=== PATIENT | female | born 1965 | race Caucasian/White ===

== ENCOUNTER → 2020-02-04 14:20 | Outpatient (CLI) | payer OTHER, SELFPAY ==
--- NOTE | ~2020-02-04 | US_ITS ---
EXAMINATION: US thyroid EXAM DATE: 02/04/2020 14:40 INDICATION: There is enlargement. Abnormal thyroid levels. History of Graves' disease. TECHNIQUE: Multiple grayscale and Doppler images of the thyroid were obtained (by a technologist who performed the scan) and subsequently reviewed. Individual nodules and recommendations may be reporte d in accordance with TI-RADS system as designated by the 2017 ACR White Paper TI-RADS committee. The re is no prior study for comparison. FINDINGS: The right thyroid lobe measures 4.1 x 1.2 x 1.6 cm, left measuring 3.7 x 1.1 x 1.3 cm. There is relat ively homogeneous thyroid echogenicity with expected amount of vascularity. No focal nodules identifi ed. IMPRESSION: Unremarkable thyroid ultrasound exam. Reviewed, dictated and finalized at location A.
== END ==
PROVIDERS: Visit Provider Internal Medicine
DX: E03.9 Hypothyroidism, unspecified (principal)
CPT/HCPCS: 76536

== ENCOUNTER 2020-02-08 14:42 | Outpatient (CLI) | payer OTHER, SELFPAY ==
--- NOTE | 2020-02-08 | ECHO_ITS ---
Patient Info Name: Nirali Donnelly Age: 54 years : 1965 Gender: Female Ht: 66 in Wt: 215 lbs BSA: 2.17 m2 HR: 71 bpm BP: 131 / 91 mmHg Heart Rhythm: Sinus Rhythm Technical Quality: Good Exam Date: 02/08/2020 3:09 PM Exam Location: [facility] Patient Status: Outpatient Admit Date: 02/08/2020 Staff Ordering Physician: Héctor Cruz MD Web Publisher: Drew Acuna RDCS Attending Provider: Héctor Cruz MD Referring Physician: Anthony RAPHAEL; Exam Type: CA echo doppler color flow Study Info Indications R01.1 - Cardiac murmur, unspecified Complete two-dimensional, color flow and Doppler transthoracic echocardiogram is performed. Strain analysis performed. History/Risk Factors Murmur. Summary 1. Left ventricular chamber dimension is normal. 2. Left ventricular systolic function is normal, estimated at 60-65%. 3. There is no increased left ventricular wall thickness. 4. The left ventricular diastolic function is normal. 5. E/e' 5 is not elevated. 6. Global longitudinal strain is normal at -20.1%. 7. There is trace tricuspid valve regurgitation. 8. No pulmonary hypertension, estimated pulmonary arterial systolic pressure is 29 mmHg. Left Ventricle E/e' 5 is not elevated. Global longitudinal strain is normal at -20.1%. Left ventricular chamber dimension is normal. Left ventricular systolic function is normal, estimated at 60-65%. There is no increased left ventricular wall thickness. The left ventricular diastolic function is normal. Right Ventricle Right ventricular chamber dimension is normal. Right ventricular systolic function is normal. Left Atria Left atrial chamber dimension is normal. Right Atria Right atrial chamber dimension is normal. Aortic Valve The aortic valve is trileaflet. There is no aortic valve stenosis. There is no aortic valve regurgitation. Pulmonic Valve There is no pulmonic regurgitation. Mitral Valve There is no mitral valve stenosis. There is no mitral valve regurgitation. Tricuspid Valve There is trace tricuspid valve regurgitation. No pulmonary hypertension, estimated pulmonary arterial systolic pressure is 29 mmHg. Pericardium/Pleural There is no pericardial effusion. Inferior Vena Cava Normal inferior vena cava with >50% collapse upon inspiration consistent with normal right atrial pressure, 5 mmHg. Aorta The aortic root size at the sinus of Valsalva is normal. Left Ventricular Outflow Tract Name Value Normal LVOT 2D LVOT Diameter 1.8 cm LVOT Doppler LVOT Peak Gradient 6 mmHg LVOT Mean Gradient 3 mmHg LVOT VTI 26 cm LVOT VTI/AV VTI Ratio 1.0 LVOT Stroke Volume 70 ml LVOT CO 4.9 l/min LVOT CI 2.3 l/min/m2 Mitral Valve Name Value Normal
== END 2020-02-08 14:43 | disposition home or self-care (01) ==
PROVIDERS: PCP Internal Medicine; Visit Provider Internal Medicine
DX: R01.1 Cardiac murmur, unspecified (principal)
CPT/HCPCS: 93306

== ENCOUNTER 2020-04-29 10:03 | Outpatient (CLI) | payer OTHER, SELFPAY ==
--- NOTE | ~2020-04-29 | XR_ITS ---
EXAMINATION: XR TMJ BI DATE: 04/29/2020 10:27 INDICATION: Arthralgia of temporomandibular joint, unspecified side. TECHNIQUE: Open and closed mouth views of the bilateral temporomandibular joints for a total of 4 vie ws were obtained. COMPARISON: None. FINDINGS: Right mandibular condyle demonstrates a tiny osteophyte. Left mandibular condyle is normal in morphology. There is normal anterior translation of the mandibular condyles in the open-mouth posi tion. IMPRESSION: 1. Mild osteoarthritis of right temporomandibular joint. Reviewed, dictated and finalized at location A.
== END 2020-04-29 10:04 | disposition home or self-care (01) ==
LOC: ANHIMG 10:10
PROVIDERS: PCP Internal Medicine; Visit Provider Internal Medicine
DX: M26.641 Arthritis of right temporomandibular joint (principal)
CPT/HCPCS: 70330

== ENCOUNTER 2020-05-17 11:28 | Outpatient (NON) | payer OTHER, SELFPAY ==
[2020-05-21 14:21] LABS: SARS-CoV-2 RNA PCR Negative
== END 2020-05-17 11:29 ==
LOC: ANHCOVIDDT 11:29
PROVIDERS: PCP Internal Medicine; Visit Provider Internal Medicine
DX: Z20.828 Contact with and (suspected) exposure to other viral communicable diseases (principal)
CPT/HCPCS: 87635; C9803; U0003

== ENCOUNTER 2020-08-21 13:26 | Outpatient (CLI) | payer OTHER, SELFPAY ==
--- NOTE | ~2020-08-21 | XR_ITS ---
XR chest 2V DATE: 08/21/2020 13:53 INDICATION: Cough, shortness of breath. TECHNIQUE: PA and lateral views COMPARISON: 09/18/2015 PA and lateral chest FINDINGS: Normal heart size. No hilar or mediastinal enlargement. No pulmonary infiltrate or consolid ation, pleural effusion or pulmonary vascular congestion or pneumothorax. IMPRESSION: No active cardiopulmonary disease Reviewed, dictated and finalized at location B. ER MASON
[2020-08-21 13:46] LABS: Hematocrit 40.6 % (37.0-47.0); Hemoglobin 13.4 g/dL (12.0-15.0); Mean Corpuscular Hemoglobin 29.6 pg (26-34); Mean Corpuscular Volume 89.8 fl (80-100); Mean Platelet Volume 10.1 fl (7.4-10.4); Platelet Count Result 169 k/mm3 (150-375); Red Blood Count 4.52 M/mm3 (4.2-5.4); Red Cell Distribution Width 12.4 % (11.5-14.5); White Blood Count 4.5 K/mm3 (4.5-10.0)
[2020-08-21 13:59] LABS: Anion Gap 7 mmol/L (8-16); Blood Urea Nitrogen 6 mg/dL (7-17); Calcium 8.8 mg/dL (8.4-10.2); Carbon Dioxide 33 mmol/L (22-30); Chloride 98 mmol/L (98-107); Estimated Glomerular Filt Rate > 60; Glucose 91 mg/dL (65-105); Sodium 138 mmol/L (137-145)
[2020-08-21 14:11] LABS: Atypical Lymphocytes Present; Eosinophils Absolute Manual 0.09 K/mm3 (0.02-0.5); Eosinophils Percent Manual 2 % (0-4); Monocytes Absolute Manual 0.04 K/mm3 (0.1-0.90); Monocytes Percent Manual 1 % (3-9); Neutrophils Percent Manual 57 % (46-73); Platelet Estimate Adequate (Adequate); Smudge Cells PRESENT; Total Cells Counted 100
[2020-08-21 14:12] LABS: Crenated RBC 1+ (NORMAL); Ovalocytes 1+ (NORMAL)
[2020-08-21 14:13] LABS: Tear Drop Cells 1+ (NORMAL)
[2020-08-21 14:24] LABS: Free T4 Free Thyroxine 0.98 ng/mL (0.78-2.19)
[2020-08-24 05:51] LABS: Triiodothyronine T3 Free 2.9 pg/mL (2.3-4.2)
== END 2020-08-21 13:27 | disposition home or self-care (01) ==
LOC: ANHLAB 13:31
PROVIDERS: PCP Internal Medicine; Visit Provider Internal Medicine
DX: U07.1 COVID-19 (principal); R06.02 Shortness of breath; R05 Cough; Z86.39 Personal history of other endocrine, nutritional and metabolic disease
CPT/HCPCS: 36415; 71046; 80048; 84439; 84443; 84481; 85025

== ENCOUNTER 2020-09-19 10:12 | Outpatient (CLI) | payer OTHER, SELFPAY ==
--- NOTE | ~2020-09-19 | US_ITS ---
EXAMINATION: US abdomen limited EXAM DATE: 09/19/2020 10:48 INDICATION: R14.0 - Abdominal distension (gaseous) post prandial abd pain. TECHNIQUE: Multiple grayscale and Doppler images of the abdomen right upper quadrant were obtained (b y a technologist who performed the scan) and subsequently reviewed. Comparison is made to prior exami nation from 05/31/2017. FINDINGS: The pancreatic head and body are normal in appearance. The pancreatic tail is not visualized. The l iver has normal echogenicity and contour. There are no focal liver lesions identified. There is no evidence of intrahepatic biliary duct dilation. Portal venous flow was seen in the hepatopedal, nor mal direction and has normal Doppler waveform. No right-sided hydronephrosis. Common bile duct measures 2 mm, which is normal. The gallbladder wall is normal in thickness, with ex pected amount of distention. No sonographic evidence of pericholecystic fluid. Multiple small galls tones. Technologist performing exam reports patient did not demonstrate sonographic Merritt's sign. Please note that this sign is less reliable in patients who have received pain medication. IMPRESSION: Cholelithiasis. Reviewed, dictated and finalized at location A. IMPRESSION: Cholelithiasis.
--- NOTE | ~2020-09-19 | XR_ITS ---
EXAMINATION: XR UGIAC w small bowel EXAM DATE: 09/19/2020 11:48 INDICATION: R14.0 - Abdominal distension (gaseous) . TECHNIQUE: Assistant Offset Press Operator radiograph was acquired. Standard single and double contrast barium upper GI examina tion was performed followed by small bowel series. Spot images of the terminal ileum were acquired. The DAP for this procedure was 50 Gycm2. There is no prior study for comparison. FINDINGS: There is no esophageal stricture, diverticulum or mass identified. Gastroesophageal juncti on is normal in appearance. Reflux was not demonstrated during this examination. The stomach has a normal appearance without evidence of mass lesion, ulceration or filling defect. T here is normal rugal fold pattern. The duodenum and duodenal sweep are normal in appearance. Ileal and jejunal fold patterns are normal. There is no small bowel wall thickening or mass effect d isplacing small bowel. There are no intraluminal filling defects identified. There is no small aki l dilation. Terminal ileum is normal in appearance. Contrast reached the colon 15-30 minutes, denice l. IMPRESSION: Normal exam. Reviewed, dictated and finalized at location A. IMPRESSION: Normal exam.
== END 2020-09-19 10:13 | disposition home or self-care (01) ==
PROVIDERS: PCP Internal Medicine; Visit Provider Internal Medicine
DX: R14.0 Abdominal distension (gaseous) (principal); K80.20 Calculus of gallbladder without cholecystitis without obstruction
CPT/HCPCS: 74246; 74248; 76705

== ENCOUNTER 2020-09-26 11:37 | Outpatient (CLI) | payer OTHER, SELFPAY ==
--- NOTE | ~2020-09-26 | NM_ITS ---
EXAMINATION: NM hepatobiliary w pharm DATE: 09/26/2020 13:39 INDICATION: Cholelithiasis COMPARISON: HIDA scan dated 06/06/2017 TECHNIQUE: 4.7 mCi Tc-99m mebrofenin (Choletec) was administered intravenously. Scintigraphic images of the abdomen were obtained for one hour. 1.7 mcg sincalide (Kinevac) was administered by slow intr avenous infusion, and imaging was continued for 30 minutes. Gallbladder ejection fraction was calcula ren by the technologist. FINDINGS: There is normal clearance of radiotracer from the blood pool. There is homogeneous tracer uptake by t he liver. Activity progresses to the gallbladder and bowel. The gallbladder ejection fraction (GBEF) is 0% (normal 10-90%, but most patient with gallbladder dysfunction have GBEF < 35% which does overl ap with the normal range). IMPRESSION: 1. No evident ejection of activity from the gallbladder in response to sincalide administration cons istent with gallbladder dysfunction or chronic cholecystitis in the appropriate clinical setting. Reviewed, dictated and finalized at location A. IMPRESSION: 1. No evident ejection of activity from the gallbladder in response to sincali de administration consistent with gallbladder dysfunction or chronic cholecysti tis in the appropriate clinical setting.
== END 2020-09-26 11:38 | disposition home or self-care (01) ==
PROVIDERS: PCP Internal Medicine; Visit Provider Internal Medicine
DX: K80.20 Calculus of gallbladder without cholecystitis without obstruction (principal)
CPT/HCPCS: 78227; A9537; J2805

== ENCOUNTER 2021-01-14 10:37 | Outpatient (CLI) | payer OTHER, SELFPAY ==
--- NOTE | 2021-01-14 10:30 | ECG_ITS ---
Measurements Intervals [place] Rate: 53 P: 38 CA: 174 QRS: 50 QRSD: 89 T: 27 QT: 434 QTc: 410 Interpretive Statements SINUS BRADYCARDIA BASELINE ARTIFACT- II, III, AVF BORDERLINE ECG Electronically Signed On 01-14-2021 10:59:36 CDT by Ashish Butler D.O.
[2021-01-14 12:29] LABS: Alanine Aminotransferase 32 U/L (4-35); Albumin Level 4.7 g/dL (3.5-5.1); Alkaline Phosphatase 59 U/L (38-126); Amylase 70 U/L (30-110); Anion Gap 8 mmol/L (8-16); Aspartate Amino Transferase 35 U/L (14-36); Blood Urea Nitrogen 9 mg/dL (7-17); Calcium 9.5 mg/dL (8.4-10.2); Carbon Dioxide 31 mmol/L (22-30); Chloride 99 mmol/L (98-107); Estimated Glomerular Filt Rate > 60; Glucose 97 mg/dL (65-105); Lipase 41 U/L (23-300); Potassium 3.6 mmol/L (3.4-5.0); Sodium 138 mmol/L (137-145)
== END 2021-01-14 10:38 | disposition home or self-care (01) ==
LOC: ANHSURGERY 10:40
PROVIDERS: PCP Internal Medicine; Visit Provider Surgery
DX: K81.9 Cholecystitis, unspecified (principal); E78.00 Pure hypercholesterolemia, unspecified; Z01.818 Encounter for other preprocedural examination; R94.31 Abnormal electrocardiogram [ECG] [EKG]
CPT/HCPCS: 36415; 80053; 82150; 82248; 83690; 86850; 86900; 86901; 93005

== ENCOUNTER 2021-01-16 01:03 | Day surgery (SDC) | payer OTHER, SELFPAY ==
[2021-01-13 11:24] VITALS: BMI 30.4
[2021-01-16] VITALS (9 sets, daily range): BP systolic 88–103; BP diastolic 50–69; PULSE 44–64; RESP 10–16; TEMP 36.7; O2SAT 97–100
[2021-01-16] MEDS: ACETAMINOPHEN 500 MG TABLET 1000 MG PO (10:45)
[2021-01-16] MEDS: LACTATED RINGERS 1,000 ML 30 ML IV CONT ×2 (10:45→12:50)
[2021-01-16] MEDS: KETOROLAC 15 MG/ML VIAL (*BKC) IV PUSH (11:06)
--- NOTE | 2021-01-16 11:24 | P.PNAN_ITS ---
Anes - Initial Pre Proc Eval Procedure: Operation Date: 01/16/21 12:00 Proposed Procedures p Laparoscopic Cholecystectomy, Possible Open - Jose Jurado DO Date/Time: 01/16/21 11:24 Surgeon: Jose Jurado DO Pre Op Diagnosis: chronic cholecystitis and cholelithiasis Patient Data Age: 55 Gender: F Height: 1.68 m Weight: 83 kg Last Vital Signs Temp 36.7 C 01/16/21 10:59 Pulse 58 L 01/16/21 10:59 BP 94/54 L 01/16/21 10:59 Pulse Ox 97 01/16/21 10:59 Allergies Allergy/AdvReac Type Severity Reaction Status Date / Time No Known Allergies Allergy Verified 01/16/21 10:25 Home Medications Medication Instructions Recorded Confirmed Type cholecalciferol (vitamin D3) 1,250 mcg PO WEEKLY 01/13/21 01/16/21 History levothyroxine [Synthroid] 88 mcg PO DAILY 01/13/21 01/16/21 History rosuvastatin 10 mg PO HS 01/13/21 01/16/21 History tretinoin [Retin-A] 1 applic TOPICAL HS PRN 01/13/21 01/16/21 History Patient hx anesthesia problems: none Family hx anesthesia problems: none PMFSH Past Medical History Medical History Abdominal bloating Abnormal finding of blood chemistry BMI 29.0-29.9,adult Disordered sleep Dysfunctional gallbladder Follow up Hair loss Hand paresthesia Heart murmur High frequency hearing loss History of Graves' disease Hypothyroidism Insomnia Medial epicondylitis, left elbow Mixed hyperlipidemia On long term care administrator drug therapy Osteoarthritis of right temporomandibular joint Pre-diabetes Shingles Temporomandibular joint (TMJ) pain Varicose veins of both lower extremities Vitamin D deficiency Surgical History Surgical History H/O wisdom tooth extraction 1991 H/O: hysterectomy History of breast biopsy 04/2018 @ [facility] History of delivery 2003 Family History Family History Father No problems noted. Sibling Family history of multiple sclerosis Mother Hypertension Grandparent Cerebrovascular accident Other Family history of allergic disorder Family history of hypothyroidism Non-Hodgkin lymphoma Social History Social History Smoking status: Never smoker Second hand tobacco smoke exposure: No Alcohol intake: current Alcohol use details: very rarely; like 2 per year Substance use: never Substance use type: does not use Living arrangements: with family Spiritual care concerns: No Anes - Eval Final PreProcedure Day of Procedure 01/16/21 11:24 Patient weight: obese Heart: regular rate and rhythm Lungs: clear to auscultation Airway: Mallampati scale class II and other (TMJ pain - good ROM) Neurological: alert and oriented Last oral intake: >/= 8 hours ASA classification: III Emergent: no Anesthetic plan: proceed Anesthesia type and monitoring: general ETT and standard monitoring Informed Consent: The patient's anesthetic plan and its attendant risks and benefits were discussed with the patient/family/POA. Questions were solicited and answers provided to the satisfaction of the patient/family/POA.
--- NOTE | 2021-01-16 11:53 | WPDHPUPDATE1 ---
History and Physical Update Update Date/Time: 01/16/21 11:53 History and Physical has been reviewed, including an updated exam of the patient. There are NO changes in the patient's condition. Risks, benefits, and alternatives have been discussed and questions answered. Patient agrees to proceed with procedure.
--- NOTE | 2021-01-16 11:53 | PM.IMHP ---
H&P: HPI History of Present Illness Date/Time: 01/16/21 11:53 Chief Complaint: upper abdominal pain Narrative: 55 yo woman presents for lap cherry. Denies any changes since last seen in office. Review of Systems Review of Systems: All systems reviewed & are unremarkable except as noted in HPI and below Constitutional: Constitutional: Denies chills, Denies fever(s), Denies headache(s) and Denies weight loss Eyes: Eyes: Denies change in vision ENT: Denies dizziness, Denies headache(s), Denies neck mass and Denies throat swelling Cardiovascular: Cardiovascular: Denies chest pain, Denies lightheadedness and Denies dyspnea Respiratory: Respiratory: Denies cough, Denies dyspnea and Denies wheezing Gastrointestinal: Gastrointestinal: Denies abdominal pain, Denies change in bowel habits, Denies nausea and Denies vomiting Genitourinary: Genitourinary: Denies hematuria and Denies dysuria Musculoskeletal: Musculoskeletal: Reports as per HPI Integumentary/Breasts: Skin/Breast: Reports as per HPI Neurologic: Denies dizziness and Denies headache(s) Allergic/Immunologic: Allergic/Immunologic: Denies throat swelling and Denies wheezing [facility] Past Medical History Medical History Abdominal bloating Abnormal finding of blood chemistry BMI 29.0-29.9,adult Disordered sleep Dysfunctional gallbladder Follow up Hair loss Hand paresthesia Heart murmur High frequency hearing loss History of Graves' disease Hypothyroidism Insomnia Medial epicondylitis, left elbow Mixed hyperlipidemia On shelter drug therapy Osteoarthritis of right temporomandibular joint Pre-diabetes Shingles Temporomandibular joint (TMJ) pain Varicose veins of both lower extremities Vitamin D deficiency Surgical History Surgical History H/O wisdom tooth extraction 1991 H/O: hysterectomy History of breast biopsy 04/2018 @ [facility] History of delivery 2003 Family History Family History Father No problems noted. Sibling Family history of multiple sclerosis Mother Hypertension Grandparent Cerebrovascular accident Other Family history of allergic disorder Family history of hypothyroidism Non-Hodgkin lymphoma Social History Social History Smoking status: Never smoker Second hand tobacco smoke exposure: No Alcohol intake: current Alcohol use details: very rarely; like 2 per year Substance use: never Substance use type: does not use Living arrangements: with family Spiritual care concerns: No Meds Home Medications and Allergies Home Medications Medication Instructions Recorded Confirmed Type cholecalciferol (vitamin D3) 1,250 mcg PO WEEKLY 01/13/21 01/16/21 History levothyroxine [Synthroid] 88 mcg PO DAILY 01/13/21 01/16/21 History rosuvastatin 10 mg PO HS 01/13/21 01/16/21 History tretinoin [Retin-A] 1 applic TOPICAL HS PRN 01/13/21 01/16/21 History Allergies Allergy/AdvReac Type Severity Reaction Status Date / Time No Known Allergies Allergy Verified 01/16/21 10:25 Vital Signs Vital Signs - 24 hr 01/16/21 10:59 Temperature 36.7 C Pulse Rate 58 L Blood Pressure 94/54 L Pulse Oximetry 97 Exam Const: General: no acute distress and alert Orientation/consciousness: patient oriented x3 HENMT: Head: normocephalic and atraumatic Ears: hearing grossly normal bilaterally General nose exam: Normal nares present Mouth: Yes Normal oral and palatal mucosa present Eyes: Periorbital: periorbital findings normal Sclera: sclerae normal EOM: EOMs intact bilaterally Neck: Neck: normal visual inspection, no lymphadenopathy and trachea midline Chest: Chest palpation & inspection: normal inspection of the chest Resp: Effort & Inspection: normal respiratory effort Ausculta
[2021-01-16] MEDS: ceFAZolin 2 GM/D5W 50 ML 2 GM/50 ML BAG IVPB (11:59)
[2021-01-16] MEDS: BUPIVACAINE/EPINEPHRINE 0.5% 30 ML VIAL INFILTRATE (12:29)
--- NOTE | 2021-01-16 12:49 | W.PM.PROC2 ---
Procedure Note - Detailed Date of Procedure 01/16/21 Pre-op Diagnosis chronic cholecystitis and cholelithiasis Post-op Diagnosis same Procedure Performed Laparoscopic Cholecystectomy Surgeon Jose Jurado, DO Anesthesia general and local (0.5% bupivacaine with epinephrine) Indications This is a 55-year-old woman who presented with recurrent upper abdominal pains. She previously had a gallbladder ultrasound which showed evidence of cholelithiasis. She then also had a HIDA scan which showed 0% gallbladder ejection fraction. Discussions were made with the patient about her treatment options and decision was made to proceed with laparoscopic cholecystectomy, possible open. Findings Laparoscopic cholecystectomy was performed. The gallbladder had a few pericholecystic adhesions. The cystic duct appeared normal in size. No other significant abnormalities were noted. The gallbladder was removed and sent to the lab for pathology. Description of Procedure Procedure as well as risks, benefits, and alternatives were discussed with patient. Written consent was obtained and placed in chart prior to procedure. The patient was brought back to surgical suite. Patient was placed in supine position on operating table. Time-out was done to confirm patient and procedure. Patient was then intubated by the anesthesia department. Abdomen was prepped and draped in sterile fashion using chlorhexidine prep. 0.5% bupivacaine with epinephrine was infiltrated at each site of incision. A 5 millimeter incision was made near the umbilicus, and a 5 millimeter Optiview trocar was advanced through the abdominal layers under direct visualization. Once inside the abdominal cavity, carbon dioxide was insufflated to create a pneumoperitoneum. The camera was inserted and the abdomen was inspected. No immediate abnormalities were identified. The patient was placed in reverse Trendelenburg position and rotated slightly to the left. An 11 millimeter incision was made in the subxiphoid region, and an 11 millimeter trocar was inserted under direct visualization. Two 5 millimeter incisions were made in the right upper quadrant, and two 5 millimeter trocars were inserted under direct visualization. The gallbladder was identified and grasped at the fundus and retracted superiorly. It was then grasped at the infundibulum retracted laterally. Careful dissection around the neck of the gallbladder was performed using blunt dissection with a [place] grasper and hook electrocautery. The cystic duct was identified, and a window was created behind it. The cystic artery was also identified and a window was created behind it. The critical view of safety was identified, visualizing the cystic duct running directly into the neck of the gallbladder, and the cystic artery running directly into the wall of the gallbladder. A 5 millimeter clip coder operator was then used to place 2 clips proximally and 1 clip distally on both the cystic duct and cystic artery. They were then both transected using endoscopic scissors. Once safely away from the issac hepatitis, the gallbladder was dissected free from the liver bed using hook electrocautery. Hemostasis was achieved along the way. The gallbladder was removed completely and then removed through the subxiphoid port. The liver bed was then inspected. Hemostasis appeared adequate, and our clips appeared secure. The area was gently irrigated with sterile saline. No other abnormalities were seen. The patient was flattened out in bed, and 1 final inspection was made around the abdominal cavity. The subxiphoid port was removed, and a Chad Kirsty cone was used to approximate the fascia with an 0-Vicryl simple interrupted suture. The remaining ports were then removed under direct visualization, the camera was removed, and the pneumoperitoneum was released. The skin of the incisions was approximated using 4-0 Monocryl subcuticular sutures. Exofin glue was juan
[2021-01-16] MEDS: ONDANSETRON INJ 4 MG/2 ML VIAL IV PUSH (13:03)
[2021-01-16] MEDS: fentaNYL CITRATE INJ (*CRX) 100 MCG/2 ML VIAL 25 MCG IV PUSH (13:48)
== END 2021-01-16 15:02 | disposition home or self-care (01) ==
PROVIDERS: PCP Internal Medicine; Visit Provider Surgery
PROC: 0FT44ZZ Resection of Gallbladder, Percutaneous Endoscopic Approach (ICD-10-PCS; CPT 47562; principal; 2021-01-16 12:00)
DX: K80.20 Calculus of gallbladder without cholecystitis without obstruction (principal); E05.00 Thyrotoxicosis with diffuse goiter without thyrotoxic crisis or storm; E78.2 Mixed hyperlipidemia; R73.03 Prediabetes; E55.9 Vitamin D deficiency, unspecified; E66.9 Obesity, unspecified; Z68.29 Body mass index [BMI] 29.0-29.9, adult
CPT/HCPCS: 47562; 36415; 80053; 82150; 82248; 83690; 86850; 86900; 86901; 88304; 93005; A9270; J0690; J1100; J1885; J2250; J2405; J2704; J2710; J3010; J7030; J7120

== ENCOUNTER 2021-01-23 10:17 | Outpatient (CLI) | payer OTHER, SELFPAY | END 2021-01-23 10:18 | disposition home or self-care (01) | LOC: ANHAUDIO 10:20 | PROVIDERS: PCP Internal Medicine; Visit Provider Otolaryngology | DX: H90.3 Sensorineural hearing loss, bilateral (principal) | CPT/HCPCS: 92557; 92567 ==

== ENCOUNTER 2021-03-16 16:18 | Outpatient (CLI) | payer OTHER, SELFPAY ==
--- NOTE | ~2021-03-16 | XR_ITS ---
XR knee LT 3V DATE: 03/16/2021 16:46 INDICATION: Knee pain TECHNIQUE: Oral and standing AP and lateral views COMPARISON: None FINDINGS: There is minimal periarticular spurring at the 3 compartments of the knee. Small suprapatel lar knee joint effusion. No fracture or dislocation, periosteal reaction or bone destruction, radiopaque intra-articular loose body or chondrocalcinosis. IMPRESSION: Mild tricompartment osteoarthritis and mild knee joint effusion Reviewed, dictated and finalized at location A.
--- NOTE | ~2021-03-16 | XR_ITS ---
XR knee RT 3V DATE: 03/16/2021 16:46 INDICATION: Right knee pain TECHNIQUE: [place] and standing AP and lateral views COMPARISON: None FINDINGS: There is slight periarticular spurring of the patella consistent with mild osteoarthritis. Joint spaces appear well preserved. No fracture or dislocation or joint effusion, periosteal reaction or bone destruction, radiopaque intra-articular loose body or chondrocalcinosis is detected. IMPRESSION: Mild patellofemoral osteoarthritis Reviewed, dictated and finalized at location A.
== END 2021-03-16 16:19 | disposition home or self-care (01) ==
LOC: ANHIMG 16:22
PROVIDERS: PCP Internal Medicine; Visit Provider Internal Medicine
DX: M17.0 Bilateral primary osteoarthritis of knee (principal); M25.462 Effusion, left knee
CPT/HCPCS: 73562

== ENCOUNTER → 2021-03-24 17:13 | Outpatient (CLI) | payer OTHER, SELFPAY ==
--- NOTE | ~2021-03-24 | MR_ITS ---
EXAMINATION: MR knee LT wo con DATE: 03/24/2021 18:28 INDICATION: Left knee pain. TECHNIQUE: Magnetic resonance imaging (MRI) of the left knee was performed without intravenous contra st. Sequences included axial PD-weighted FS FSE, coronal PD-weighted FSE and PD-weighted FS FSE, sagi ttal PD-weighted FSE, and sagittal T2-weighted FS FSE. COMPARISON: Left knee radiographs 03/16/2021 FINDINGS: Medial compartment: Medial meniscus is normal. There is a 6 x 3 mm ganglion cyst adjacent to anterior horn. There is cart ilage surface irregularity of tibial condyle and femoral condyle. Tiny osteophytes are noted. Lateral compartment: Lateral meniscus is normal. There is cartilage surface irregularity of tibial condyle and femoral con dyle. Tiny osteophytes are noted. Patellofemoral compartment: There is full-thickness cartilage loss of lateral trochlea with moderate subchondral edema and marrow signal intensity. There is full-thickness cartilage loss of patellar lateral facet with small subcho ndral cysts and moderate subchondral edema-like marrow signal intensity. Osteophytes are noted. Ligaments and tendons: The anterior and posterior cruciate ligaments are normal. There are collateral ligament and lateral c ollateral ligament complex are intact. There is mild patellar tendinopathy. Fluid: There is a small knee joint effusion. There is edema in suprapatellar fat pad, which is nonspecific b ut may be seen with impingement. There is mild prepatellar and superficial infrapatellar bursitis. Th ere is a small Baumann's cyst. IMPRESSION: 1. Severe chondrosis of patellofemoral compartment and mild chondrosis of medial and lateral compartm ents. 2. Small knee joint effusion. 3. Small Baumann's cyst. Reviewed, dictated and finalized at location A. IMPRESSION: 1. Severe chondrosis of patellofemoral compartment and mild chondrosis of media l and lateral compartments. 2. Small knee joint effusion. 3. Small Baumann's cyst.
== END ==
PROVIDERS: PCP Internal Medicine; Visit Provider Internal Medicine
DX: M71.22 Synovial cyst of popliteal space [Baker], left knee (principal); M25.462 Effusion, left knee
CPT/HCPCS: 73721

== ENCOUNTER → 2021-03-31 11:21 | Outpatient (CLI) | payer OTHER, SELFPAY ==
--- NOTE | ~2021-03-31 | US_ITS ---
EXAMINATION: US abdomen limited DATE: 03/31/2021 11:36 INDICATION: Unspecified abdominal pain, abnormal liver function tests TECHNIQUE: Multiple grayscale and Doppler ultrasound images of the abdomen were obtained. COMPARISON: 09/19/2020 FINDINGS: The head and body of the pancreas are normal. The pancreatic tail is obscured by bowel gas. The liver is normal with normal echogenicity and echotexture. No surface nodularity. Normal hepatope blake flow in the main portal vein. The gallbladder is surgically absent. The normal common bile duct m easures 3 mm. IMPRESSION: 1. No sonographic correlate for the patient's symptoms. Reviewed, dictated and finalized at location A.
== END ==
PROVIDERS: PCP Internal Medicine; Visit Provider Internal Medicine
DX: R10.9 Unspecified abdominal pain (principal)
CPT/HCPCS: 76705

== ENCOUNTER 2023-02-04 08:06 | Outpatient (CLI) | payer OTHER, SELFPAY ==
--- NOTE | ~2023-02-04 | XR_ITS ---
EXAMINATION: XR chest 2V DATE: 02/04/2023 08:32 INDICATION: Dorsalgia TECHNIQUE: PA and lateral views of the chest were obtained. COMPARISON: Chest radiograph date FINDINGS: The lungs remain clear with no focal airspace opacities, pulmonary edema, pleural effusion or pneumot horax. The cardiomediastinal silhouette is normal. Severe thoracic spondylosis. IMPRESSION: 1. No acute cardiopulmonary disease. Reviewed, dictated and finalized at location A.
--- NOTE | ~2023-02-04 | XR_ITS ---
EXAMINATION: XR thoracic spine 3V, XR lumbar spine 6V w bending DATE: 02/04/2023 08:32 INDICATION: Dorsalgia TECHNIQUE: 1. Standing AP, lateral and lateral swimmer's views of the thoracic spine were obtained. 2. Standing AP, lateral in neutral, flexion and extension, left and right oblique and coned-down late ral lumbosacral views of the lumbar spine were obtained. COMPARISON: None. FINDINGS: Thoracic spine: 9 degrees thoracic dextrocurvature. Vertebral body heights are normal. Moderate to severe disc height loss at several levels the mid thoracic spine. Additional cervical spondylosis with moderate disc he ight loss at C4-C5 and C5-C6. Lumbar spine: 4 degree lumbar dextrocurvature. Sagittal alignment is normal with normal motion on flexion and exten pratibha. Vertebral body and disc heights are normal. No pars interarticularis defects. Moderate lower penny mbar facet osteoarthritis. There is also mild right-sided and moderate left-sided sacroiliac osteoart hritis. Cholecystectomy clips in right upper quadrant. IMPRESSION: 1. Severe thoracic spondylosis and moderate lower lumbar facet osteoarthritis. Reviewed, dictated and finalized at location A. IMPRESSION: 1. Severe thoracic spondylosis and moderate lower lumbar facet osteoarthritis.
== END 2023-02-04 08:07 | disposition home or self-care (01) ==
PROVIDERS: PCP Internal Medicine; Visit Provider Internal Medicine
DX: M47.894 Other spondylosis, thoracic region (principal); M51.36 Other intervertebral disc degeneration, lumbar region
CPT/HCPCS: 71046; 72072; 72114

== ENCOUNTER 2023-06-20 11:09 | Outpatient (CLI) | payer OTHER, SELFPAY ==
[2023-06-20 12:04] LABS: Strep Group A RT-PCR NOT DETECTED (Negative)
[2023-06-20 12:15] LABS: Influenza A QL RT-PCR Positive (Negative); Influenza B QL RT-PCR Negative (Negative); SARS-CoV-2 RNA PCR Negative (Negative)
[2023-06-20 12:37] LABS: Negative Monotest Control Negative (Negative); Positive Monotest Control Positive (Positive)
[2023-06-20 12:40] LABS: Monoscreen Negative (Negative)
== END 2023-06-20 11:10 | disposition home or self-care (01) ==
LOC: ANHLAB 11:10
PROVIDERS: PCP Internal Medicine; Visit Provider Internal Medicine
DX: R05.9 Cough, unspecified (principal); J02.9 Acute pharyngitis, unspecified
CPT/HCPCS: 36415; 86308; 87636; 87651

== ENCOUNTER → 2023-08-10 11:13 | Outpatient (CLI) | payer OTHER, SELFPAY ==
--- NOTE | ~2023-08-10 | DEXA_ITS ---
Bone Density Report Name: KEVIN CORDERO Age: 58 Sex: Female Ethnicity: White Date of : 1965 Indication: postmenopausal; screening for osteoporosis; height loss; hysterectomy; Referring Provider: LUIZ MANLEY Study: Bone densitometry was performed. Exam Date: August 10, 2023 Accession number: [id number] Bone Density: Region BMD T-score Z-score Classification AP Spine (L1-L4) 0.858 -1.7 -0.6 Osteopenia Femoral Neck (Left) 0.680 -1.5 -0.4 Osteopenia Total Hip (Left) 0.849 -0.8 0.0 Normal Femoral Neck (Right) 0.681 -1.5 -0.4 Osteopenia Total Hip (Right) 0.840 -0.8 -0.1 Normal Total Hip Mean 0.844 -0.8 -0.1 Normal World Health Organization criteria for BMD impression classify patients as: Normal (T-score at or above -1.0), Osteopenia (T-score between -1.0 and -2.5), or Osteoporosis (T-score at or below -2.5). 10-year Fracture Risk(1): Major Osteoporotic Fracture 7.0% Hip Fracture 0.6% Reported Risk Factors: [place] (), Neck BMD=0.681, BMI=25.9 (1) FRAX(R) Version 3.08. Fracture probability calculated for an untreated patient. Fracture probability may be lower if the patient has received treatment. Clinical Information Provided by Patient: Has used the following medications: Vitamin D Has the following medical conditions: Hysterectomy Patient maximum height was 67.0 Menopause Age: 49 Does not regularly consume dairy products Drinks caffeinated beverages Onset of menses at age 18 Number of children 2 Impression: The patient has low bone mass, based on the Total Spine T-score. The patient has an estimated ten-year risk of hip fracture of 0.6% and an estimated ten-year risk of major fracture of 7%, based on the WHO FRAX algorithm. Discussion: BONE DENSITY IS LOW AT ONE OR MORE SKELETAL SITES. This patient's lowest T-score is low at one or more skeletal sites. It meets the World Health Organization's (WHO) criteria for ?low bone mass? (T-score between -1.0 and -2.5). The patient's 10-year risk of fracture as calculated by FRAX is less than the threshold where pharmacological therapy is recommended by the National Osteoporosis Foundation (NOF). However, all treatment decisions require clinical judgment and consideration of individual patient factors, including patient preferences, comorbidities, previous drug use, risk factors not captured in the FRAX model (e.g., frailty, falls, vitamin D deficiency, increased bone turnover, interval significant decline in bone density) and possible under or overestimation of fracture risk by FRAX. The patient should follow a healthful lifestyle (good nutrition with adequate calcium and vitamin D, and appropriate weight-bearing exercise). Follow-Up: Consider repeating this study in 2 to 3 years to reassess this patient's status, or sooner if t
== END ==
PROVIDERS: PCP Internal Medicine; Visit Provider Registered Nurse
DX: Z78.0 Asymptomatic menopausal state (principal); M85.88 Other specified disorders of bone density and structure, other site; M85.852 Other specified disorders of bone density and structure, left thigh; M85.851 Other specified disorders of bone density and structure, right thigh
CPT/HCPCS: 77080

== ENCOUNTER 2023-09-23 11:34 | Emergency (ER) | payer OTHER, SELFPAY ==
--- NOTE | ~2023-09-23 | CT_ITS ---
EXAMINATION: CT lumbar spine wo con DATE: 09/23/2023 14:29 INDICATION: L1 compression fracture TECHNIQUE: Computed tomography (CT) of the lumbar spine was performed without intravenous contrast. A utomated exposure control and iterative reconstruction technique were employed. The [facility] was 685.06 mGy-cm. COMPARISON: CT dated 09/23/2023 FINDINGS: Acute appearing L1 compression fracture with 10% anterior vertebral body height loss. There is an add itional 10% depression of a 17 x 11 mm region of the left anterior aspect of the superior endplate. A lignment is otherwise normal. Many vertebral body heights are normal. No other fractures identified. Paravertebral soft tissues are unremarkable with no appreciable stranding or hematoma surrounding the L1 compression fracture. The following disc levels are specifically discussed: T11-T12: The disc does not extend beyond the endplate margin. There is mild bilateral facet joint ost eoarthritis. There is no neural foraminal stenosis. There is no central canal stenosis. T12-L1: The disc does not extend beyond the endplate margin. There is mild bilateral facet joint oste oarthritis. Of note the bilateral transverse processes remain unfused to the pedicles and superior ar ticular processes. There is no neural foraminal stenosis. There is no central canal stenosis. L1-L2: Disc is mildly bulging. There is mild bilateral facet joint osteoarthritis. There is no neural foraminal stenosis. There is negligible central canal stenosis. L2-L3: Disc is bulging. There is mild bilateral facet joint osteoarthritis. There is mild bilateral n eural foraminal stenosis. There is mild central canal stenosis. L3-L4: Disc is bulging. There is mild bilateral facet joint osteoarthritis. There is mild bilateral n eural foraminal stenosis. There is mild central canal stenosis. L4-L5: Disc is bulging. There is left and mild to moderate right facet joint osteoarthritis. There is mild bilateral neural foraminal stenosis. There is mild central canal stenosis. L5-S1: Disc is mildly bulging. There is mild left and moderate to severe right facet joint osteoarthr itis. There is no neural foraminal stenosis. There is no central canal stenosis. IMPRESSION: 1. Acute appearing L1 compression fracture with mild anterior vertebral body height loss. 2. Mild lumbar spondylosis. Reviewed, dictated and finalized at location A. IMPRESSION: 1. Acute appearing L1 compression fracture with mild anterior vertebral body he ight loss. 2. Mild lumbar spondylosis.
--- NOTE | ~2023-09-23 | CT_ITS ---
Non-contrast Head CT History: Head injury Technique: Axial non-contrast imaging of the brain was performed. Dose reduction technique was used on this scan by utilizing automated exposure control and iterative reconstruction technique. The dose -length product (DLP) was 605.33 mGy-cm. Findings: There is no evidence of intracranial hemorrhage, mass lesion, or acute infarct. Brain par enchyma appears normal. The ventricles and subarachnoid spaces are normal in size. The calvarium ap pears normal. The visualized paranasal sinuses and mastoid air cells are clear. Impression: No significant abnormality seen. Reviewed, dictated and finalized at location . Impression: No significant abnormality seen.
--- NOTE | ~2023-09-23 | CT_ITS ---
Noncontrast CT scan of the thoracic spine CLINICAL HISTORY: Injury TECHNIQUE: Axial noncontrast imaging of the thoracic spine was performed. Sagittal and coronal reform atted images were constructed. Dose reduction technique was used on this scan by utilizing automated exposure control and iterative reconstruction technique. The dose-length product (DLP) was 834.37 mGy -cm. FINDINGS: There is no fracture or subluxation of the thoracic spine. Vertebral bodies maintain normal height and alignment. There is a probable acute compression fracture at the superior plate of L1. There is moderate degenerative disc narrowing at T5-T6, T6-T7, T7-T8, and T8-T9. No significant disc bulge or herniation evident in the thoracic spine. No spinal canal stenosis or co rd compression evident. Paravertebral soft tissues are unremarkable. Impression: Probable acute compression fracture at the superior endplate region of L1. No fracture or subluxation the thoracic spine. Degenerative disc narrowing of the thoracic spine, as detailed above. Reviewed, dictated and finalized at [facility]. Impression: Probable acute compression fracture at the superior endplate region of L1. No fracture or subluxation the thoracic spine. Degenerative disc narrowing of the thoracic spine, as detailed above.
--- NOTE | ~2023-09-23 | CT_ITS ---
Noncontrast CT scan of the cervical spine Technique: Multiple contiguous axial [address] images of the cervical spine were obtained and rec onstructed in 2D sagittal and coronal planes on the acquisition scanner. Dose reduction technique was used on this scan by utilizing automated exposure control, adjustment of the mA and/or kV according to patient size. The dose-length product (DLP) was 378.48 mGy-cm. Clinical History: Pain Findings: No fractures or dislocations. There is reversal normal cervical lordosis. There is moderat e degenerative disc narrowing at C4-C5, C5-C6, and C6-C7. There is probable right neural foraminal na rrowing at C4-C5. No prevertebral soft tissue swelling. Impression: No fracture or subluxation of the cervical spine. Mild degenerative change, as above. Reviewed, dictated and finalized at [facility]. Impression: No fracture or subluxation of the cervical spine. Mild degenerative change, as above.
[2023-09-23 12:14] VITALS: BP 84/44; PULSE 60; RESP 18; TEMP 36.4; O2SAT 100
--- NOTE | 2023-09-23 12:20 | PC.NURSE ---
Pt taken to room, declined offer for w/c x3.
[2023-09-23] MEDS: SODIUM CHLORIDE 0.9% IV 1,000 ML 999 ML IV CONT (14:35)
[2023-09-23] MEDS: IBUPROFEN 600 MG TABLET PO (15:04)
--- NOTE | 2023-09-23 15:08 | ED.HEATRA ---
HPI - Head Injury General Chief complaint: Head Injury Stated complaint: mirror fell on head- +LOC/back pain Time Seen by Provider: 09/23/23 13:15 History of Present Illness HPI Narrative: This is a 58-year-old female, with history of chronic low back pain decreased blood pressures, who presents emergency department complaining headache, nausea and low back pain after a mirror fell on her. The patient states he is in her usual state of health, cleaning a mirror, when it fell on her. She states smear stands about 5 ft tall. It struck her on the back of the head and landed on her back. She complains of headache, nausea lightheadedness and dull with intermittent sharp back pain rated 6 to 7/10. She has no other complaints at this time. She denies use of blood thinners. Related Data Home Medications Medication Instructions Recorded Confirmed cholecalciferol (vitamin D3) 1,250 1,250 mcg PO WEEKLY 01/13/21 07/06/23 mcg (50,000 unit) capsule levothyroxine 100 mcg tablet 88 mcg PO DAILY 01/13/21 07/06/23 (Synthroid) vitamin B complex (B 1 tablet PO DAILY 02/24/21 07/06/23 Complex-Vitamin B12 tablet) prucalopride 1 mg tablet 2 mg PO DAILY 03/04/22 07/06/23 (Motegrity) magnesium 200 mg tablet 600 mg PO DAILY 07/06/23 07/06/23 naltrexone 4.5 mg capsule mg PO inflammation 07/06/23 07/06/23 Allergies Allergy/AdvReac Type Severity Reaction Status Date / Time No Known Allergies Allergy Verified 09/23/23 12:39 Review of Systems Review of Systems: CONSTITUTIONAL: Denies fever, chills, or sweats. CARDIOVASCULAR: Denies chest pain, palpitations, or edema. RESPIRATORY: Denies cough or dyspnea. GASTROINTESTINAL: Nausea Denies abdominal pain,, vomiting, or diarrhea. GENITOURINARY: Denies dysuria or hematuria. SKIN: Denies rash or itching. MUSCULOSKELETAL: Low back pain Denies joint pain, or myalgia. NEUROLOGIC: Headache Denies numbness, dizziness, or weakness. PSYCHIATRIC: Denies anxiety or depression. [facility] Past Medical History Medical History Abdominal bloating Abdominal pain Abnormal biliary HIDA scan Abnormal finding of blood chemistry Bilateral knee pain BMI 25.0-25.9,adult BMI 28.0-28.9,adult BMI 30.0-30.9,adult (~02/04/23) BMI 31.0-31.9,adult Disordered sleep Dysfunctional gallbladder Flat foot [pes planus] (acquired), left foot Flat foot [pes planus] (acquired), right foot Hair loss Hand paresthesia Heart murmur High frequency hearing loss History of Graves' disease History of miscarriage Hypermobility syndrome Hypersomnolence Hypothyroidism Insomnia Medial epicondylitis, left elbow Mixed hyperlipidemia Non-celiac gluten sensitivity FOSTER on CPAP Osteoarthritis of right temporomandibular joint Personal history of COVID-19 Pre-diabetes Shingles PRIMO (stress urinary incontinence, female) Temporomandibular joint (TMJ) pain Urinary urgency Vaginal dryness Varicose veins of both lower extremities Vitamin D deficiency Surgical History Surgical History H/O wisdom tooth extraction 1991 H/O: hysterectomy History of breast biopsy 04/2018 @ [facility] History of delivery 2004 Hx laparoscopic cholecystectomy Family History Family History Father No problems noted. Sibling Family history of multiple sclerosis Mother Hypertension Grandparent Cerebrovascular accident Other Family history of allergic disorder Family history of hypothyroidism Non-Hodgkin lymphoma Social History Social History Smoking status: Never smoker Second hand tobacco smoke exposure: No Alcohol intake: current Alcohol use details: very rarely; like 2 per year Substance use: never Substance use type: does not use Lack of Transportation: No Lack of Food: Never True Curre
[2023-09-23] MEDS: oxyCODONE/ACETAMINOPHEN (*CRX) 5-325 MG TABLET 1 TABLET PO (15:14)
[2023-09-23 15:18] VITALS: BP 104/92; PULSE 70; RESP 16; O2SAT 100
[2023-09-23] MEDS: ONDANSETRON INJ 4 MG/2 ML VIAL IV PUSH (17:07)
== END 2023-09-23 17:40 | disposition home or self-care (01) ==
PROVIDERS: Emergency Provider Preventive Medicine Aerospace Medicine; PCP Internal Medicine
DX: S06.0X1A Concussion with loss of consciousness of 30 minutes or less, initial encounter (principal); S32.010A Wedge compression fracture of first lumbar vertebra, initial encounter for closed fracture; E78.2 Mixed hyperlipidemia; E55.9 Vitamin D deficiency, unspecified; E03.9 Hypothyroidism, unspecified; R73.03 Prediabetes; N39.3 Stress incontinence (female) (male); G47.33 Obstructive sleep apnea (adult) (pediatric); M21.42 Flat foot [pes planus] (acquired), left foot; M21.41 Flat foot [pes planus] (acquired), right foot; M19.09 Primary osteoarthritis, other specified site; Z86.16 Personal history of COVID-19; Z90.710 Acquired absence of both cervix and uterus; Z90.49 Acquired absence of other specified parts of digestive tract; M47.816 Spondylosis without myelopathy or radiculopathy, lumbar region; W20.8XXA Other cause of strike by thrown, projected or falling object, initial encounter
CPT/HCPCS: 70450; 72125; 72128; 72131; 96361; 96374; 99284; A9270; J2405; J7030

== ENCOUNTER 2023-09-29 11:57 | Outpatient (CLI) | payer OTHER, SELFPAY ==
--- NOTE | ~2023-09-29 | XR_ITS ---
EXAMINATION: XR lumbar spine 2-3V DATE: 09/29/2023 12:11 INDICATION: Low back pain, history of compression fracture TECHNIQUE: Anteroposterior and lateral views of the lumbar spine, and cone-down lateral view of the l umbosacral junction were obtained. COMPARISON: 02/04/2023; CT, 09/23/2023 FINDINGS: There is unchanged anterior compression fracture of L1. The remaining vertebral body height s are maintained. The intervertebral disc spaces are normal. Cholecystectomy clips are noted. Punctat e calcifications of the left upper quadrant are consistent with old granulomatous disease of the sple en. There is mild facet joint osteoarthritis of the lower lumbar spine. IMPRESSION: 1. L1 compression fracture without significant change. 2. Mild lumbar spondylosis. Reviewed, dictated and finalized at location A.
== END 2023-09-29 11:58 | disposition home or self-care (01) ==
PROVIDERS: PCP Internal Medicine; Visit Provider Physician Assistant
DX: M47.896 Other spondylosis, lumbar region (principal); S32.010D Wedge compression fracture of first lumbar vertebra, subsequent encounter for fracture with routine healing; X58.XXXD Exposure to other specified factors, subsequent encounter
CPT/HCPCS: 72100

== ENCOUNTER 2023-10-06 10:02 | Outpatient (CLI) | payer OTHER, SELFPAY ==
--- NOTE | ~2023-10-06 | US_ITS ---
US venous doppler LE RT DATE: 10/06/2023 10:34 INDICATION: Right lower extremity pain, calf area. Asymptomatic varicose veins of bilateral lower ext remities. TECHNIQUE: Real-time and color flow imaging and Doppler analysis of the veins of the right lower extr emity COMPARISON: None FINDINGS: The right greater saphenous vein is patent. There is spontaneous and phasic flow and normal augmentation and color flow signal and normal compression of the deep veins of the right lower extre mity. There is a patent varicose vein identified at the area of calf pain. IMPRESSION: No evidence of deep venous thrombosis of right lower extremity Reviewed, dictated and finalized at Location A. Reviewed, dictated and finalized at location B.
== END 2023-10-06 10:03 ==
PROVIDERS: PCP Internal Medicine; Visit Provider Internal Medicine
DX: I83.93 Asymptomatic varicose veins of bilateral lower extremities (principal); M79.661 Pain in right lower leg
CPT/HCPCS: 93971

== ENCOUNTER 2023-10-18 09:27 | Outpatient (CLI) | payer OTHER, SELFPAY ==
--- NOTE | ~2023-10-18 | XR_ITS ---
Lumbosacral Spine: AP and lateral views Clinical History: Pain Findings: The normal lordotic curve is maintained. The vertebral bodies and posterior elements are i ntact. The intervertebral disc spaces are preserved. There is advanced facet arthropathy at L4-L5 an d L5-S1. The sacroiliac joints are normally outlined. Impression: Facet arthropathy lower lobar spine, as above. Reviewed, dictated and finalized at location M. Impression: Facet arthropathy lower lobar spine, as above.
== END 2023-10-18 09:28 ==
LOC: MICIMG 09:29
PROVIDERS: PCP Internal Medicine; Visit Provider Physician Assistant
DX: S32.010A Wedge compression fracture of first lumbar vertebra, initial encounter for closed fracture (principal); X58.XXXA Exposure to other specified factors, initial encounter
CPT/HCPCS: 72100